=== PATIENT | male | born 1985 | race Asian ===

== ENCOUNTER 2021-03-18 20:46 | Emergency (ER) | payer MEDICAID ==
[~2021-03-18] VITALS: Ht 172.7 cm; Wt 79.4 kg
[2021-03-18 20:50] VITALS: BP_SYST 121
--- NOTE | 2021-03-18 21:17 | NUR ---
Patient to ER bed [address] to gown for evaluation. Side rails up. Report given to Barrie RODRIGUEZ.
--- NOTE | 2021-03-18 21:18 | NUR ---
DR. BUTLER AT BEDSIDE FOR EVALUATION.
--- NOTE | 2021-03-18 21:20 | NUR ---
Pt BIB family to ED C/O acute onset of chest pain started last night sharp stabbing type pain worse with inspiration expiration. No fever chills cough congestion. Patient states he been using marijuana. He denies any other complaints
--- NOTE | 2021-03-18 21:24 | NUR ---
Pt states " feeling a bit better " currently resting in comfort on [employer] rails up
[2021-03-18 21:50] VITALS: BP_SYST 121
--- NOTE | 2021-03-18 21:50 | NUR ---
Patient given written and verbal discharge instructions and verbalizes understanding. ER MD discussed with patient the results and treatment provided. Patient in stable condition. ID arm band removed. Patient educated on pain management and to follow up with PMD. Pain Scale 0/10 Opportunity for questions provided and answered.
== END 2021-03-18 21:50 | disposition home or self-care (01) ==
LOC: SED 20:46
DX: R07.89 Other chest pain (principal); F12.90 Cannabis use, unspecified, uncomplicated
CPT/HCPCS: 71045; 93005; 99283

== ENCOUNTER 2022-07-05 00:08 | Emergency (ER) | payer MEDICAID ==
[~2022-07-05] VITALS: Ht 172.7 cm; Wt 74.8 kg
[~2022-07-05 00:08] MED LIST: HYDR-3917 PO
[2022-07-05 00:15] VITALS: BP_SYST 101
--- NOTE | 2022-07-05 02:15 | NUR ---
Patient to ER bed [facility] to gown for evaluation. Side rails up.
--- NOTE | 2022-07-05 02:30 | NUR ---
ER at bedside examining patient.
[2022-07-05] MEDS ORDERED: KETOROLAC TROMETHAMINE 30 MG VIAL IM ONE (03:30)
[2022-07-05] MEDS ORDERED: NAPR-1172 PO (03:32)
[2022-07-05] MEDS ORDERED: CYCL10TA24 PO (03:32)
--- NOTE | 2022-07-05 04:42 | NUR ---
Patient given written and verbal discharge instructions and verbalizes understanding. ER MD discussed with patient the results and treatment provided. Patient in stable condition. ID arm band removed. Rx of Flexeril and Naprosyn given. Patient educated on pain management and to follow up with PMD. Pain Scale 4/10. Opportunity for questions provided and answered. Medication side effect fact sheet provided.
[2022-07-05 04:44] VITALS: BP_SYST 106
== END 2022-07-05 04:42 | disposition home or self-care (01) ==
LOC: SED 00:08
DX: S46.911A Strain of unspecified muscle, fascia and tendon at shoulder and upper arm level, right arm, initial encounter (principal); Z79.899 Other long term (current) drug therapy; X58.XXXA Exposure to other specified factors, initial encounter; Y93.89 Activity, other specified; Y92.89 Other specified places as the place of occurrence of the external cause; Y99.8 Other external cause status
CPT/HCPCS: 99283; 73030; 96372; J1885

== ENCOUNTER 2023-04-11 01:24 | Emergency (ER) | payer MEDICAID ==
[~2023-04-11] VITALS: Ht 172.7 cm; Wt 71.2 kg
[~2023-04-11 01:24] MED LIST changes: +CYCL10TA24 PO; +NAPR-1172 PO
[2023-04-11 01:36] VITALS: BP_SYST 128; PULSE 90; RESP 20; TEMP 97.5; O2SAT 97
[2023-04-11] MEDS ORDERED: PSEU120T57 PO (02:21)
[2023-04-11] MEDS ORDERED: ACET-2634 PO (02:21)
[2023-04-11 02:28] VITALS: BP_SYST 107; PULSE 75; RESP 17; TEMP 97.7; O2SAT 96
== END 2023-04-11 02:27 | disposition home or self-care (01) ==
LOC: SED 01:24
DX: H69.91 Unspecified Eustachian tube disorder, right ear (principal); H92.01 Otalgia, right ear; Z79.899 Other long term (current) drug therapy
CPT/HCPCS: 99282

== ENCOUNTER 2024-03-18 00:11 | Emergency (ER) | payer MEDICAID ==
[~2024-03-18] VITALS: Ht 172.7 cm; Wt 71.2 kg
[~2024-03-18 00:11] MED LIST changes: +ACET-2634 PO; +PSEU120T57 PO
[2024-03-18 00:20] VITALS: BP_SYST 122; PULSE 96; RESP 20; TEMP 98.5; O2SAT 98
[2024-03-18 01:54] LABS: BILIRUBIN,URINE NEGATIVE (NEGATIVE); COLOR,URINE YELLOW (YELLOW); GLUCOSE,URINE NEGATIVE (NEGATIVE); KETONES,URINE NEGATIVE (NEGATIVE); LEUKOCYTE ESTERASE ,URINE NEGATIVE (NEGATIVE); NITRITE, URINE NEGATIVE (NEGATIVE); PROTEIN URINE NEGATIVE (NEGATIVE); UROBILINOGEN,URINE 0.2 (0.2-1.0)
[2024-03-18 02:23] LABS: BASOPHILS # (AUTO) 0.1 K/uL (0.0-0.2); BASOPHILS % (AUTO) 0.8 % (0.0-2.0); EOSINOPHILS # (AUTO) 0.3 K/uL (0.0-0.4); EOSINOPHILS % (AUTO) 2.8 % (0.0-4.0); HEMATOCRIT 49.8 % (36-54); HEMOGLOBIN 17.6 g/dL (14.0-18.0); LYMPHOCYTES # (AUTO) 1.4 K/uL (1.0-5.5); LYMPHOCYTES % (AUTO) 12.1 % (20.5-51.5); MEAN CORPUSCULAR HEMOGLOBIN 32 pg (27-31); MEAN CORPUSCULAR HGB CONC 35 % (32-36); MEAN CORPUSCULAR VOLUME 91 fL (79.0-98.0); MONOCYTES # (AUTO) 0.6 K/uL (0.0-1.0); MONOCYTES % (AUTO) 4.9 % (1.7-9.3); NEUTROPHILS # (AUTO) 9.1 K/uL (1.8-7.7); NEUTROPHILS % (AUTO) 79.4 % (40.0-70.0); PLATELET COUNT (AUTO) 362 K/uL (130-430); RED BLOOD CELL COUNT(AUTO) 5.45 MIL/uL (4.2-6.2); WHITE BLOOD COUNT (AUTO) 11.5 K/uL (4.8-10.8)
[2024-03-18 02:30] LABS: CALCIUM 9.3 mg/dL (8.4-11.0); CREATININE 1.02 mg/dL (0.55-1.30); POTASSIUM 3.6 mmol/L (3.5-5.1)
[2024-03-18 02:44] LABS: BLOOD, URINE NEGATIVE (NEGATIVE); CLARITY/URINE HAZY (CLEAR); RBC,URINE 0-3 /HPF (0-3)
[2024-03-18 02:45] LABS: BACTERIA,URINE None Seen /HPF (None Seen); WBC,URINE 0-3 /HPF (0-3)
[2024-03-18 03:16] VITALS: BP_SYST 122; PULSE 96; RESP 20; TEMP 98.5; O2SAT 98
== END 2024-03-18 03:16 | disposition home or self-care (01) ==
LOC: SED 00:11
DX: R10.31 Right lower quadrant pain (principal); R11.0 Nausea; Z79.899 Other long term (current) drug therapy; Z79.2 Long term (current) use of antibiotics
CPT/HCPCS: 36415; 80048; 81000; 81001; 81015; 85025; 99284